=== PATIENT | male | born 1990 | race Caucasian/White ===

== ENCOUNTER 2022-04-05 14:19 | Emergency (ER) | payer MEDICAID, OTHER ==
[~2022-04-05] VITALS: Ht 165.1 cm; Wt 69.6 kg
[2022-04-05 14:29] VITALS: BP 130/74
--- NOTE | 2022-04-05 14:36 | NUR ---
SWABS HANDED TO LAB
[2022-04-05] MEDS ORDERED: ROBAC PO (15:16)
[2022-04-05] MEDS ORDERED: BENZ-300 PO (15:16)
[2022-04-05] MEDS ORDERED: IBUP-2213 PO (15:16)
--- NOTE | 2022-04-05 15:27 | NUR ---
Patient discharged with v/s stable. Written and verbal after care instructions FOR UPPER RESPIRATORY INFECTION given and explained. Patient alert, oriented and verbalized understanding of instructions. Ambulatory with steady gait. All questions addressed prior to discharge. ID band removed. Patient advised to follow up with PMD. Rx of CEPACOL SORE THROAT LOZENGE, IBURPOFEN AND CODEINE PHOSPHATE given. Opportunity to ask questions provided and answered.
== END 2022-04-05 15:27 | disposition home or self-care (01) ==
LOC: MED 14:19
DX: J06.9 Acute upper respiratory infection, unspecified (principal); Z20.822 Contact with and (suspected) exposure to COVID-19; Z79.899 Other long term (current) drug therapy
CPT/HCPCS: 99283